=== PATIENT | female | born 1960 | race Caucasian/White ===

== ENCOUNTER 2017-08-08 21:36 | Emergency (ER) | payer OTHER ==
[~2017-08-08] VITALS: Ht 165.1 cm; Wt 74.1 kg
[2017-08-08 21:41] VITALS: Ht 165.1 cm; Wt 74.1 kg
[2017-08-08] MEDS ORDERED: HYDROCODONE/APAP (5/325) TAB PO ONE (23:00)
--- NOTE | 2017-08-08 23:20 | RADRPT ---
PROCEDURE: XR Left Ankle. CLINICAL INDICATION: Blunt trauma to left ankle, with pain. Reference marker directed towards the l ateral aspect of the left ankle. TECHNIQUE: AP, oblique and lateral views of the left ankle were performed. COMPARISON: None. FINDINGS: There is normal mineralization and alignment. No acute fracture or osseous lesion is identified. The joints are normal. Mild soft tissue swelling over the anterior left ankle. IMPRESSION: Mild soft tissue swelling, without acute fracture. RPTAT: [facility] Physician [facility] Date Time Electronically viewed and signed by Physician Hamlet on 08/08/2017 23:19 RS/
--- NOTE | 2017-08-08 23:34 | ERD ---
ER Documentation Chief Complaint Chief Complaint Left ankle pain HPI The patient is a 57-year-old female who presents to the Emergency Department with complaint of left ankle pain since yesterday. The patient reports that yesterday she was in [place], [facility] While on the zipline she accidentally banged her left ankle against the edge of the platform, and inverted her foot. She now reports pain to the lateral aspect of the left ankle. The pain is worse with weightbearing activity, and mildly improved at rest. She rates her current pain as 5 out of 10. She denies any numbness, paresthesias or weakness of the distal extremity. Denies restricted range of motion. ROS All systems reviewed and are negative except as per history of present illness. Medications Home Meds Active Scripts Hydrocodone/Acetaminophen ([place] 5-325 Tablet) 1 Each Tablet, 1 EACH PO Q6, #10 TAB Prov:BRITTANY BALDWIN PA-C 08/08/17 Ibuprofen* (Motrin*) 600 Mg Tab, 600 MG PO Q6, #30 TAB Prov:BRITTANY BALDWIN PA-C 08/08/17 Allergies Allergies: Coded Allergies: Penicillins (Verified Allergy, Unknown, 08/08/17) PMhx/Soc Medical and Surgical Hx: pt denies Medical Hx, pt denies Surgical Hx Hx Alcohol Use: No Hx Substance Use: No Hx Tobacco Use: No Smoking Status: Never smoker Physical Exam Vitals Vital Signs Date Time Temp Pulse Resp B/P Pulse Ox O2 Delivery O2 Flow Rate FiO2 08/08/17 21:41 97.9 92 20 136/94 96 Physical Exam GENERAL: Well-developed, well-nourished female in no acute distress. HEENT: Head is normocephalic, atraumatic. No scleral pallor or icterus. Conjunctivae pink. Moist mucous membranes. NECK: Supple. RESPIRATORY: Lungs are clear to auscultation bilaterally. Equal breath sounds. CARDIOVASCULAR: Regular rate and rhythm. Distal pulses are palpable, 2+ bilaterally. Capillary refill is less than 2 seconds. No murmurs, rubs or gallops. BACK: Normal range of motion. EXTREMITIES: No clubbing or cyanosis. Moderate edema of the left lateral ankle. Pain on palpation of the distal aspect of the fibula. Pain on palpation posterior to the lateral malleolus. No proximal tib-fib tenderness. No calf tenderness or calf swelling. Mild pain on dorsiflexion of the left ankle against resistance. Normal skin perfusion. Normal pulses, 2+ pulses peripherally bilaterally. The ankle and foot is neurovascularly intact. No tenderness to palpation at the base of the fifth metatarsal. 5/5 sensation and motor of the upper and lower extremities bilaterally. Full range of motion of the upper extremities. Muscle tone is normal. No erythema noted. Anterior drawer test negative. Talar tilt test negative. Compartments are soft. NEUROLOGIC: The patient is alert, awake and oriented x 3. No focal neurologic deficits. Gait is observed and patient is favoring the affected extremity. There is no ataxia. Motor and sensation grossly intact. Speech is normal. INTEGUMENT: Skin is intact, warm, and dry. No lacerations or abrasions. PSYCHIATRIC: Normal mood and mentation. Results 24 hrs Current Medications Medications (Trade) Dose Ordered Sig/Mitzy Route PRN Reason Start Time Stop Time Status Last Admin Dose Admin Acetaminophen/ Hydrocodone Bitart ([place] (5/325)) 1 tab ONCE ONCE PO 08/08/17 23:00 08/08/17 23:01 DC 08/08/17 23:05 Procedures/MDM DIAGNOSTIC TESTS AND INTERPRETATION: PROCEDURE: XR Left Ankle. CLINICAL INDICATION: Blunt trauma to left ankle, with pain. Reference marker directed towards the lateral aspect of the left ankle. TECHNIQUE: AP, oblique and lateral views of the left ankle were performed. COMPARISON: None. FINDINGS: There is normal mineralization and alignment. No acute fracture or osseous lesion is identified. The joints are normal. Mild soft tissue swelling over the anterior left ankle. IMPRESSION:Mild soft tissue swelling, without acute fracture. Physician [facility]let Date Time Electronically viewed and signed by Physician Hamlet on 08/08/2017 23:19 MEDICAL DECISION MAKING: This is a 57-year-old female presenting to the Emergency Department with left lateral ankle pain after an inversion injury and blunt injury while on a zipline yesterday. The patient had moderate swelling and tenderness localized to the lateral malleolus of the left ankle on physical examination, but otherwise vital signs are stable. Differential diagnosis includes, but is not limited to, soft tissue injury, sprain, strain, dislocation, subluxation, contusion, fracture, vascular injury, peripheral nerve injury, compartment syndrome. Compartments soft, with no evidence of compartment syndrome. No pain out of proportion to examination. No restricted range of motion. Distal extremity neurovascularly intact. No acute fractures or dislocations noted on x- ray imaging performed. [place] was administered to the patient. Upon my review and interpretation of the patient's presentation, clinical data, and overall ER course I believe the patient's symptoms are most consistent with ankle pain/ sprain. Everette wrap ordered for the patient, but unfortunately she eloped prior to further evaluation/management. A good martín effort was made to call the patient to return, but patient could not be reached. Departure Diagnosis: Primary Impression: Left lateral ankle pain Condition: Stable Patient Instructions: R.I.C.E., Sprain, Ankle, No X-Ray, Sprain, Ankle, With X- Ray, What Are Ankle Sprains? Additional Instructions: Call your primary care doctor TOMORROW for an appointment during the next 2-3 days.See the doctor sooner or return here if your condition worsens before your appointment time. BRITTANY BALDWIN PA-C Aug 08, 2017 23:34
[2017-08-08] MEDS ORDERED: HYDR-906 PO (23:35)
[2017-08-08] MEDS ORDERED: IBUP-1542 PO (23:35)
== END 2017-08-08 23:53 | disposition home or self-care (01) ==
LOC: FTE 21:36
DX: M25.572 Pain in left ankle and joints of left foot (principal)
CPT/HCPCS: 73610

== ENCOUNTER → 2017-08-08 | Emergency (ER) | payer SELFPAY ==
[~2017-08-08] VITALS: Wt 75.0 kg
[~2017-08-08] MED LIST: HYDR-906 PO; IBUP-1542 PO
== END | disposition left against medical advice (07) ==
LOC: FTE 18:04
DX: Z53.21 Procedure and treatment not carried out due to patient leaving prior to being seen by health care provider (principal)